=== PATIENT | female | born 1970 | race Caucasian/White ===

== ENCOUNTER 2021-04-10 07:13 | Day surgery (SDC) | payer MEDICAID, SELFPAY ==
[~2021-04-10] VITALS: Ht 154.9 cm; Wt 68.0 kg
[2021-04-10] MEDS ORDERED: MEPERIDINE 100 MG INJ. 100 MG/ML VIAL ONE (09:10)
[2021-04-10] MEDS ORDERED: MIDAZOLAM HCL 5 MG/5 ML VIAL ONE (09:10)
[2021-04-10 15:07] VITALS: BP_SYST 118
== END 2021-04-10 10:37 | disposition home or self-care (01) ==
LOC: SDS 07:13 → SMU 07:14 → SDS 10:37
PROVIDERS: ATTEND Internal Medicine Gastroenterology
DX: Z12.11 Encounter for screening for malignant neoplasm of colon (principal); K63.5 Polyp of colon; K64.9 Unspecified hemorrhoids; Z79.899 Other long term (current) drug therapy
CPT/HCPCS: 36415; 45380; 87426; 88305; 99152; 99153; G0378; J2175; J2250